=== PATIENT | female | born 1950 | race Caucasian/White ===

== ENCOUNTER 2019-09-20 14:26 | Inpatient (IN) ==
[2019-09-20 15:05] LABS: Basophils % 0.3 % (0.0-0.8); Eosinophils # 0.1 10*3/uL (0.0-0.87); Hematocrit 32.6 VOL% (35.7-47.0); Hemoglobin 11.3 GM/DL (12.0-16.0); Immature Granulocytes % 0.7 %; Immature Granulocytes Absolute 0.06 #; Lymphocytes # 1.8 10*3/uL (1.4-4.0); Lymphocytes % 20.6 % (21.3-54.2); Mean Corpuscular HGB Conc 34.7 GM/DL (32-36); Mean Corpuscular Volume 100.3 FL (87-102); Mean Platelet Volume 9.6 FL (9.6-12.0); Monocytes % 7.6 % (1.7-12.7); Neutrophils % 69.8 % (38.7-73.9); Platelet Count 219 T/CUMM (130-400); Red Blood Count 3.25 MC/CUMM (3.8-5.5); Red Cell Distribution Width 11.3 % (9.3-17.3); White Blood Count 8.9 T/CUMM (4-12)
[2019-09-20 15:14] LABS: PT Patient Result 10.6 SECS (9.6-12.2)
[2019-09-20 15:23] LABS: Albumin 3.1 G/DL (3.4-5.0); Bilirubin,Total 0.8 MG/DL (0.2-1.0); Calcium 9.1 MG/DL (8.5-10.1); Osmolality,Calculated 267.7 MOS/KG (273-304); Total Protein 8.1 G/DL (6.4-8.3)
[2019-09-20] MEDS ORDERED: SODIUM CHLORIDE 0.9% 1,000 ML IV STA (15:26)
[2019-09-20] MEDS ORDERED: GENTAMICIN INJ 80 MG in SODIUM CHLORIDE 0.9% 100 ML IV STA (15:33)
[2019-09-20] MEDS ORDERED: cefTRIAXone 1,000 MG in SODIUM CHLORIDE 0.9% 100 ML IV STA (15:33)
[2019-09-20] MEDS ORDERED: GENTAMICIN 80 MG/2 ML VIAL ONE (15:46)
[2019-09-20] MEDS: traMADol 50 MG TABLET PO SCH ×2 (17:43→23:05)
[2019-09-20] MEDS: GABAPENTIN 400 MG CAPSULE PO SCH ×2 (18:12→23:05)
[2019-09-20] MEDS ORDERED: DEXTROSE 50% 25 GM/50 ML SYRINGE IV PRN (18:18)
[2019-09-20] MEDS ORDERED: GLUCAGON 1 MG VIAL IM PRN (18:18)
[2019-09-20] MEDS ORDERED: GENTAMICIN INJ 360 MG in SODIUM CHLORIDE 0.9% 100 ML IV ONE (20:00)
[2019-09-20] MEDS: MAGNESIUM CHLORIDE 64 MG TABLET PO SCH (23:02)
[2019-09-20] MEDS: MONTELUKAST 10 MG TABLET PO SCH (23:03)
[2019-09-20] MEDS: ESTRADIOL 1 MG TABLET PO SCH (23:03)
[2019-09-20] MEDS: PRAMIPEXOLE 0.25 MG TABLET PO SCH (23:04)
[2019-09-20] MEDS: CALCIUM (CARBONATE)/VITAMIN D 600 MG-400 UNIT TABLET PO SCH (23:04)
[2019-09-20] MEDS: carvediloL 25 MG TABLET PO SCH (23:04)
[2019-09-20] MEDS: VITAMIN E 400 UNIT CAPSULE PO SCH (23:05)
[2019-09-20] MEDS: CLINDAMYCIN 300 MG CAPSULE PO SCH (23:05)
[2019-09-20] MEDS: LACTOBACILLUS ACIDOPHILUS/BULGARICUS CAPLET PO SCH (23:05)
[2019-09-20] MEDS: ASPIRIN EC 81 MG TABLET PO SCH (23:05)
[2019-09-20] MEDS: PANTOPRAZOLE 40 MG TABLET PO SCH (23:05)
[2019-09-20] MEDS: gemfibroziL 600 MG TABLET PO SCH (23:06)
[2019-09-20] MEDS: INSULIN LISPRO 100 UNIT/ML SUBCUT SCH (23:06)
[2019-09-20] MEDS: VALACYCLOVIR 1000 MG PO SCH (23:06)
[2019-09-21 06:28] LABS: Basophils % 0.3 % (0.0-0.8); Eosinophils # 0.2 10*3/uL (0.0-0.87); Eosinophils % 2.9 % (0.00-10.9); Hematocrit 26.6 VOL% (35.7-47.0); Hemoglobin 9.3 GM/DL (12.0-16.0); Immature Granulocytes % 0.5 %; Immature Granulocytes Absolute 0.03 #; Lymphocytes # 1.5 10*3/uL (1.4-4.0); Lymphocytes % 25.7 % (21.3-54.2); Mean Corpuscular Volume 98.9 FL (87-102); Mean Platelet Volume 9.6 FL (9.6-12.0); Monocytes % 8.4 % (1.7-12.7); Neutrophils % 62.2 % (38.7-73.9); Platelet Count 210 T/CUMM (130-400); Red Blood Count 2.69 MC/CUMM (3.8-5.5); Red Cell Distribution Width 11.6 % (9.3-17.3); White Blood Count 5.9 T/CUMM (4-12)
[2019-09-21 07:00] LABS: Alanine Aminotransferase < 9 U/L (13-56); Albumin 2.6 G/DL (3.4-5.0); Alkaline Phosphatase 62 U/L (45-117); Aspartate Amino Transferase 12 U/L (0-37); Blood Urea Nitrogen 13 MG/DL (7-18); Calcium 8.5 MG/DL (8.5-10.1); Estimated Glom Filtration Rate 83 ML/MIN; Glucose 117 MG/DL (74-106); Total Protein 6.8 G/DL (6.4-8.3)
[2019-09-21] MEDS ORDERED: FUROSEMIDE 40 MG TABLET PO SCH (09:00)
[2019-09-21] MEDS: CALCIUM (CARBONATE)/VITAMIN D 600 MG-400 UNIT TABLET PO SCH ×2 (10:04→20:57)
[2019-09-21] MEDS: carvediloL 25 MG TABLET PO SCH ×2 (10:04→16:33)
[2019-09-21] MEDS: INSULIN LISPRO 100 UNIT/ML SUBCUT SCH ×4 (10:04→20:57)
[2019-09-21] MEDS: ATORVASTATIN 20 MG TABLET PO SCH (10:05)
[2019-09-21] MEDS: FERROUS SULFATE 325 MG TABLET PO SCH (10:05)
[2019-09-21] MEDS: Prasterone (Dhea) [Dhea] 50 MG PO SCH (10:05)
[2019-09-21] MEDS: GABAPENTIN 400 MG CAPSULE PO SCH ×4 (10:05→20:56)
[2019-09-21] MEDS: gemfibroziL 600 MG TABLET PO SCH ×2 (10:05→20:57)
[2019-09-21] MEDS: POLYCARBOPHIL 625 MG TABLET PO SCH (10:05)
[2019-09-21] MEDS: CLINDAMYCIN 300 MG CAPSULE PO SCH ×3 (10:05→20:57)
[2019-09-21] MEDS: lisinopriL 2.5 MG TABLET PO SCH (10:05)
[2019-09-21] MEDS: PYRIDOXINE 100 MG TABLET PO SCH (10:06)
[2019-09-21] MEDS: traMADol 50 MG TABLET PO SCH ×4 (10:06→20:56)
[2019-09-21] MEDS: CHOLECALCIFEROL 1,000 UNIT TABLET PO SCH (10:06)
[2019-09-21] MEDS: ASCORBIC ACID 500 MG TABLET PO SCH (10:06)
[2019-09-21] MEDS: PANTOPRAZOLE 40 MG TABLET PO SCH ×2 (10:06→20:57)
[2019-09-21] MEDS: MAGNESIUM CHLORIDE 64 MG TABLET PO SCH ×3 (10:06→20:56)
[2019-09-21] MEDS ORDERED: CYANOCOBALAMIN 500 MCG TABLET PO SCH (12:00)
[2019-09-21] MEDS ORDERED: FAMOTIDINE 20 MG/2 ML VIAL IV ONE (14:21)
[2019-09-21] MEDS ORDERED: LIDOCAINE 1% 20 ML VIAL ONE (14:29)
[2019-09-21] MEDS ORDERED: cefTRIAXone 1,000 MG in SYRINGE 1 EACH IV SCH (15:00)
[2019-09-21] MEDS ORDERED: propofoL 200 MG/20 ML VIAL IV ONE (15:09)
[2019-09-21] MEDS ORDERED: LACTATED RINGERS 1,000 ML IV ONE (15:10)
[2019-09-21] MEDS ORDERED: LIDOCAINE 2% 5 ML VIAL ONE (15:10)
[2019-09-21] MEDS ORDERED: KETOROLAC 30 MG/1 ML VIAL ONE (15:10)
[2019-09-21] MEDS ORDERED: SODIUM CHLORIDE 0.9% 100 ML IV ONE (15:10)
[2019-09-21] MEDS ORDERED: fentaNYL 100 MCG/2 ML VIAL ONE (15:10)
[2019-09-21] MEDS ORDERED: MIDAZOLAM 2 MG/2 ML VIAL ONE (15:10)
[2019-09-21] MEDS: VALACYCLOVIR 1000 MG PO SCH (20:55)
[2019-09-21] MEDS: ESTRADIOL 1 MG TABLET PO SCH (20:56)
[2019-09-21] MEDS: PRAMIPEXOLE 0.25 MG TABLET PO SCH (20:56)
[2019-09-21] MEDS: VITAMIN E 400 UNIT CAPSULE PO SCH (20:57)
[2019-09-21] MEDS: ASPIRIN EC 81 MG TABLET PO SCH (20:57)
[2019-09-21] MEDS: LACTOBACILLUS ACIDOPHILUS/BULGARICUS CAPLET PO SCH (20:57)
[2019-09-21] MEDS: MONTELUKAST 10 MG TABLET PO SCH (20:57)
[2019-09-22 05:04] LABS: Basophils % 0.5 % (0.0-0.8); Eosinophils # 0.3 10*3/uL (0.0-0.87); Eosinophils % 6.3 % (0.00-10.9); Hemoglobin 9.8 GM/DL (12.0-16.0); Immature Granulocytes % 0.2 %; Immature Granulocytes Absolute 0.01 #; Lymphocytes # 1.8 10*3/uL (1.4-4.0); Lymphocytes % 42.9 % (21.3-54.2); Mean Corpuscular Volume 99.6 FL (87-102); Mean Platelet Volume 9.8 FL (9.6-12.0); Monocytes % 8.2 % (1.7-12.7); Neutrophils % 41.9 % (38.7-73.9); Platelet Count 213 T/CUMM (130-400); Red Blood Count 2.81 MC/CUMM (3.8-5.5); Red Cell Distribution Width 11.4 % (9.3-17.3); White Blood Count 4.2 T/CUMM (4-12)
[2019-09-22] MEDS ORDERED: GENTAMICIN INJ 440 MG in SODIUM CHLORIDE 0.9% 100 ML IV SCH (08:00)
[2019-09-22 08:10] VITALS: BP 113/62
[2019-09-22] MEDS: ASCORBIC ACID 500 MG TABLET PO SCH (09:41)
[2019-09-22] MEDS: PANTOPRAZOLE 40 MG TABLET PO SCH (09:42)
[2019-09-22] MEDS: GABAPENTIN 400 MG CAPSULE PO SCH (09:42)
[2019-09-22] MEDS: ATORVASTATIN 20 MG TABLET PO SCH (09:42)
[2019-09-22] MEDS: POLYCARBOPHIL 625 MG TABLET PO SCH (09:43)
[2019-09-22] MEDS: CLINDAMYCIN 300 MG CAPSULE PO SCH (09:43)
[2019-09-22] MEDS: CHOLECALCIFEROL 1,000 UNIT TABLET PO SCH (09:43)
[2019-09-22] MEDS: traMADol 50 MG TABLET PO SCH (09:43)
[2019-09-22] MEDS: FERROUS SULFATE 325 MG TABLET PO SCH (09:43)
[2019-09-22] MEDS: MAGNESIUM CHLORIDE 64 MG TABLET PO SCH (09:43)
[2019-09-22] MEDS: carvediloL 25 MG TABLET PO SCH (09:43)
[2019-09-22] MEDS: Prasterone (Dhea) [Dhea] 50 MG PO SCH (09:44)
[2019-09-22] MEDS: PYRIDOXINE 100 MG TABLET PO SCH (09:44)
[2019-09-22] MEDS: gemfibroziL 600 MG TABLET PO SCH (09:44)
[2019-09-22] MEDS: lisinopriL 2.5 MG TABLET PO SCH (09:45)
[2019-09-22] MEDS: CALCIUM (CARBONATE)/VITAMIN D 600 MG-400 UNIT TABLET PO SCH (10:06)
[2019-09-22] MEDS: INSULIN LISPRO 100 UNIT/ML SUBCUT SCH ×2 (10:16→12:20)
== END 2019-09-22 12:22 | disposition home health service (06) | DRG 623 ==
LOC: N.ED 14:26 → N.EDINP 16:37 → N.5E 17:28
PROVIDERS: ADMIT Internal Medicine; ATTEND Internal Medicine

== ENCOUNTER 2020-06-26 17:49 | Inpatient (IN) ==
[2020-06-26] MEDS ORDERED: SODIUM CHLORIDE 0.9% 1,000 ML IV STA ×3 (18:16→20:45)
[2020-06-26] MEDS ORDERED: ACETAMINOPHEN 500 MG TABLET PO STA (18:52)
[2020-06-26 19:35] LABS: Basophils % 0.2 % (0.0-0.8); Eosinophils # 0.1 10*3/uL (0.0-0.87); Eosinophils % 1.1 % (0.00-10.9); Hematocrit 35.6 VOL% (35.7-47.0); Hemoglobin 12.6 GM/DL (12.0-16.0); Immature Granulocytes % 0.4 %; Immature Granulocytes Absolute 0.04 #; Lymphocytes # 0.7 10*3/uL (1.4-4.0); Lymphocytes % 6.1 % (21.3-54.2); Mean Corpuscular HGB Conc 35.4 GM/DL (32-36); Mean Corpuscular Volume 97.8 FL (87-102); Mean Platelet Volume 10.1 FL (9.6-12.0); Monocytes % 4.9 % (1.7-12.7); Neutrophils % 87.3 % (38.7-73.9); Platelet Count 164 T/CUMM (130-400); Red Blood Count 3.64 MC/CUMM (3.8-5.5); Red Cell Distribution Width 12.7 % (9.3-17.3); White Blood Count 10.7 T/CUMM (4-12)
[2020-06-26 19:49] LABS: PT Patient Result 10.6 SECS (9.8-11.9)
[2020-06-26 20:02] LABS: Alanine Aminotransferase 13 U/L (13-56); Albumin 3.2 G/DL (3.4-5.0); Alkaline Phosphatase 86 U/L (45-117); Aspartate Amino Transferase 20 U/L (0-37); Blood Urea Nitrogen 22 MG/DL (7-18); Calcium 9.1 MG/DL (8.5-10.1); Estimated Glom Filtration Rate 45 ML/MIN; Ferritin 120.4 ng/ml (8-252); Glucose 175 MG/DL (74-106); Osmolality,Calculated 268.7 MOS/KG (273-304); Total Protein 7.4 G/DL (6.4-8.3)
[2020-06-26] MEDS ORDERED: KETOROLAC 30 MG/1 ML VIAL IV STA (20:05)
[2020-06-26 20:06] LABS: Bilirubin,Urine Negative (Negative); Blood, Urine Negative (Negative); Glucose,Urine (UA) Negative (Negative); Hyaline Casts,Urine 1 /LPF (0-3); Ketones,Urine Negative (Negative); Nitrite,Urine Negative (Negative); Protein,Urine Negative; Squamous Epithelial Cell,Urine Occasional /HPF (0-10); Urine Appearance Slightly Hazy (Clear); Urine Color Yellow (Yellow); Urine Specific Gravity 1.012 (1.001-1.035); Urine Urobilinogen < 2.0 EU/DL (0.2-1.0); WBC,Urine 1 /HPF (0-6)
[2020-06-26] MEDS ORDERED: PIPERACILLIN/TAZOBACTAM 3,375 MG in SODIUM CHLORIDE 0.9% 100 ML IV STA (20:26)
[2020-06-27] MEDS ORDERED: NOREPINEPHRINE 8 MG in SODIUM CHLORIDE 0.9% 242 ML IV PRN (00:23)
[2020-06-27] MEDS ORDERED: NOREPINEPHRINE 4 MG/4 ML VIAL IV ONE (00:26)
[2020-06-27] MEDS ORDERED: VANCOMYCIN INJ 1,000 MG in SODIUM CHLORIDE 0.9% 250 ML IV SCH (01:00)
[2020-06-27] MEDS ORDERED: ONDANSETRON 4 MG/2 ML VIAL IV PRN (01:10)
[2020-06-27] MEDS ORDERED: ALBUTEROL 2.5 MG/3 ML NEB RESP TX PRN (01:10)
[2020-06-27] MEDS ORDERED: GABAPENTIN 600 MG TABLET PO SCH (03:00)
[2020-06-27] MEDS ORDERED: ACETAMINOPHEN 325 MG TABLET ONE (03:03)
[2020-06-27] MEDS: ACETAMINOPHEN 325 MG TABLET PO PRN ×2 (03:14→11:30)
[2020-06-27] MEDS: AZTREONAM 1,000 MG in SYRINGE 1 EACH IV SCH ×2 (03:46→14:57)
[2020-06-27] MEDS: GENTAMICIN INJ 360 MG in SODIUM CHLORIDE 0.9% 100 ML IV SCH (03:52)
[2020-06-27] MEDS: LACTATED RINGERS 1,000 ML IV SCH ×4 (04:13→21:11)
[2020-06-27] MEDS: PANTOPRAZOLE 40 MG VIAL IV SCH ×2 (04:16→09:40)
[2020-06-27 04:23] LABS: Basophils % 0.2 % (0.0-0.8); Eosinophils % 0.2 % (0.00-10.9); Hematocrit 29.8 VOL% (35.7-47.0); Hemoglobin 10.4 GM/DL (12.0-16.0); Immature Granulocytes % 0.8 %; Immature Granulocytes Absolute 0.07 #; Lymphocytes # 0.6 10*3/uL (1.4-4.0); Lymphocytes % 6.6 % (21.3-54.2); Mean Corpuscular HGB Conc 34.9 GM/DL (32-36); Mean Corpuscular Volume 99.7 FL (87-102); Mean Platelet Volume 9.9 FL (9.6-12.0); Monocytes % 4.1 % (1.7-12.7); Neutrophils % 88.1 % (38.7-73.9); Platelet Count 141 T/CUMM (130-400); Red Blood Count 2.99 MC/CUMM (3.8-5.5); Red Cell Distribution Width 13.1 % (9.3-17.3); White Blood Count 8.7 T/CUMM (4-12)
[2020-06-27] MEDS ORDERED: KETOROLAC 30 MG/1 ML VIAL IV ONE (04:28)
[2020-06-27 04:54] LABS: Calcium 7.6 MG/DL (8.5-10.1); Osmolality,Calculated 279.8 MOS/KG (273-304); Thyroid Stimulating Hormone 0.303 uIU/ml (0.358-3.74)
[2020-06-27] MEDS ORDERED: MAGNESIUM SULF RIDER 4 GM in PREMIX 1 EACH IV ONE (06:30)
[2020-06-27 06:43] LABS: Bilirubin,Urine Negative (Negative); Blood, Urine Negative (Negative); Glucose,Urine (UA) Negative (Negative); Ketones,Urine Negative (Negative); Nitrite,Urine Negative (Negative); Protein,Urine Negative; RBC,Urine <1 /HPF (0-4); Squamous Epithelial Cell,Urine Occasional /HPF (0-10); Urine Appearance CLEAR (Clear); Urine Color Yellow (Yellow); Urine Specific Gravity 1.027 (1.001-1.035); Urine Urobilinogen < 2.0 EU/DL (0.2-1.0); WBC,Urine <1 /HPF (0-6)
[2020-06-27] MEDS ORDERED: MAGNESIUM SULF RIDER 50 ML IV ONE (06:58)
[2020-06-27] MEDS ORDERED: COSYNTROPIN 0.25 MG VIAL IV ONE (08:14)
[2020-06-27] MEDS ORDERED: MAGNESIUM SULF RIDER 4 GM in PREMIX 1 EACH IV PRN (08:24)
[2020-06-27] MEDS ORDERED: traMADol 50 MG TABLET PO SCH (09:00)
[2020-06-27] MEDS: RIFAMPIN INJ 600 MG in SODIUM CHLORIDE 0.9% 100 ML IV SCH (09:39)
[2020-06-27] MEDS: MAGNESIUM SULF RIDER 2 GM in PREMIX 1 EACH IV PRN (09:39)
[2020-06-27] MEDS: FERROUS GLUCONATE 324 MG TABLET PO SCH (09:40)
[2020-06-27] MEDS: ENOXAPARIN 40 MG/0.4 ML SYRINGE SUBCUT SCH (09:40)
[2020-06-27] MEDS: ASCORBIC ACID 500 MG TABLET PO SCH (09:40)
[2020-06-27] MEDS: ZINC GLUCONATE 50 MG TABLET PO SCH (09:41)
[2020-06-27] MEDS: POLYCARBOPHIL 625 MG TABLET PO SCH (09:41)
[2020-06-27] MEDS: ATORVASTATIN 20 MG TABLET PO SCH (09:41)
[2020-06-27] MEDS: LACTOBACILLUS ACIDOPHILUS/BULGARICUS CHEW TABLET PO SCH ×2 (09:52→20:50)
[2020-06-27] MEDS ORDERED: POTASSIUM CHLORIDE RIDER 10 MEQ in PREMIX 1 EACH IV PRN (11:36)
[2020-06-27] MEDS ORDERED: POTASSIUM CHLORIDE RIDER 20 MEQ in PREMIX 1 EACH IV PRN (11:36)
[2020-06-27] MEDS: HYDROCORTISONE 100 MG VIAL IV SCH ×2 (12:49→20:52)
[2020-06-27] MEDS ORDERED: DEXTROSE 50% 25 GM/50 ML VIAL IV PRN (14:19)
[2020-06-27] MEDS ORDERED: GLUCAGON 1 MG VIAL IM PRN (14:19)
[2020-06-27] MEDS: INSULIN LISPRO 100 UNIT/ML SUBCUT SCH ×2 (17:07→20:52)
[2020-06-27] MEDS: valACYclovir 500 MG TABLET PO SCH (20:51)
[2020-06-27] MEDS: ASPIRIN EC 81 MG TABLET PO SCH (20:51)
[2020-06-27] MEDS: MONTELUKAST 10 MG TABLET PO SCH (20:51)
[2020-06-27] MEDS ORDERED: ESTRADIOL 1 MG TABLET PO SCH (21:00)
[2020-06-27] MEDS ORDERED: PRAMIPEXOLE 0.25 MG TABLET PO SCH (21:00)
[2020-06-28] MEDS: AZTREONAM 1,000 MG in SYRINGE 1 EACH IV SCH ×2 (03:32→15:24)
[2020-06-28] MEDS: HYDROCORTISONE 100 MG VIAL IV SCH ×2 (04:40→15:24)
[2020-06-28] MEDS: LACTATED RINGERS 1,000 ML IV SCH ×2 (04:41→15:28)
[2020-06-28 04:58] LABS: Hematocrit 31.8 VOL% (35.7-47.0); Hemoglobin 11.3 GM/DL (12.0-16.0); Immature Granulocytes % 0.3 %; Immature Granulocytes Absolute 0.01 #; Lymphocytes # 0.4 10*3/uL (1.4-4.0); Lymphocytes % 13.9 % (21.3-54.2); Mean Corpuscular HGB Conc 35.5 GM/DL (32-36); Mean Corpuscular Volume 98.8 FL (87-102); Mean Platelet Volume 9.4 FL (9.6-12.0); Monocytes % 2.8 % (1.7-12.7); Red Blood Count 3.22 MC/CUMM (3.8-5.5); Red Cell Distribution Width 13.2 % (9.3-17.3); White Blood Count 2.9 T/CUMM (4-12)
[2020-06-28 04:59] LABS: Platelet Count 105 T/CUMM (130-400)
[2020-06-28 05:12] LABS: Calcium 7.9 MG/DL (8.5-10.1)
[2020-06-28] MEDS: INSULIN LISPRO 100 UNIT/ML SUBCUT SCH ×4 (08:09→21:02)
[2020-06-28] MEDS: ACETAMINOPHEN 325 MG TABLET PO PRN (08:35)
[2020-06-28] MEDS: ATORVASTATIN 20 MG TABLET PO SCH (08:36)
[2020-06-28] MEDS: ASCORBIC ACID 500 MG TABLET PO SCH (08:37)
[2020-06-28] MEDS: POLYCARBOPHIL 625 MG TABLET PO SCH (08:37)
[2020-06-28] MEDS: FERROUS GLUCONATE 324 MG TABLET PO SCH (08:37)
[2020-06-28] MEDS: RIFAMPIN INJ 600 MG in SODIUM CHLORIDE 0.9% 100 ML IV SCH (08:38)
[2020-06-28] MEDS: ENOXAPARIN 40 MG/0.4 ML SYRINGE SUBCUT SCH (08:38)
[2020-06-28] MEDS: ZINC GLUCONATE 50 MG TABLET PO SCH (08:38)
[2020-06-28] MEDS: PANTOPRAZOLE 40 MG VIAL IV SCH (08:38)
[2020-06-28] MEDS: LACTOBACILLUS ACIDOPHILUS/BULGARICUS CHEW TABLET PO SCH ×2 (10:16→21:00)
[2020-06-28] MEDS ORDERED: GABAPENTIN 400 MG CAPSULE PO SCH (13:00)
[2020-06-28] MEDS: GENTAMICIN INJ 360 MG in SODIUM CHLORIDE 0.9% 100 ML IV SCH (15:23)
[2020-06-28] MEDS: GABAPENTIN 400 MG CAPSULE PO SCH (18:23)
[2020-06-28] MEDS: valACYclovir 500 MG TABLET PO SCH (20:59)
[2020-06-28] MEDS: MONTELUKAST 10 MG TABLET PO SCH (21:00)
[2020-06-28] MEDS: ASPIRIN EC 81 MG TABLET PO SCH (21:00)
[2020-06-28] MEDS: traMADol 50 MG TABLET PO PRN (23:37)
[2020-06-29] MEDS: GABAPENTIN 400 MG CAPSULE PO SCH ×5 (00:37→23:52)
[2020-06-29] MEDS: LACTATED RINGERS 1,000 ML IV SCH ×2 (00:38→09:48)
[2020-06-29] MEDS: AZTREONAM 1,000 MG in SYRINGE 1 EACH IV SCH (02:46)
[2020-06-29] MEDS: HYDROCORTISONE 100 MG VIAL IV SCH ×2 (04:12→21:20)
[2020-06-29 08:20] LABS: Basophils % 0.1 % (0.0-0.8); Eosinophils % 0.2 % (0.00-10.9); Hematocrit 27.1 VOL% (35.7-47.0); Immature Granulocytes % 0.7 %; Immature Granulocytes Absolute 0.06 #; Lymphocytes % 11.6 % (21.3-54.2); Mean Corpuscular HGB Conc 35.1 GM/DL (32-36); Mean Platelet Volume 10.2 FL (9.6-12.0); Neutrophils % 83.4 % (38.7-73.9); Red Blood Count 2.71 MC/CUMM (3.8-5.5)
[2020-06-29 08:24] LABS: Hemoglobin 9.5 GM/DL (12.0-16.0); Platelet Count 143 T/CUMM (130-400); White Blood Count 8.2 T/CUMM (4-12)
[2020-06-29] MEDS: INSULIN LISPRO 100 UNIT/ML SUBCUT SCH ×4 (08:35→21:21)
[2020-06-29 08:45] LABS: Albumin 2.1 G/DL (3.4-5.0); Bilirubin,Total 0.6 MG/DL (0.2-1.0); Calcium 8.7 MG/DL (8.5-10.1); Osmolality,Calculated 289.8 MOS/KG (273-304); Total Protein 5.5 G/DL (6.4-8.3)
[2020-06-29] MEDS ORDERED: PANTOPRAZOLE 40 MG TABLET PO SCH (09:00)
[2020-06-29] MEDS ORDERED: AZTREONAM 1,000 MG in SYRINGE 1 EACH IV SCH (09:00)
[2020-06-29] MEDS: cefTRIAXone 1,000 MG in SYRINGE 1 EACH IV SCH (09:49)
[2020-06-29] MEDS: POLYCARBOPHIL 625 MG TABLET PO SCH (09:50)
[2020-06-29] MEDS: ATORVASTATIN 20 MG TABLET PO SCH (09:50)
[2020-06-29] MEDS: FONDAPARINUX 2.5 MG/0.5 ML SYRINGE SUBCUT SCH (09:50)
[2020-06-29] MEDS: LACTOBACILLUS ACIDOPHILUS/BULGARICUS CHEW TABLET PO SCH ×2 (09:50→21:23)
[2020-06-29] MEDS: ZINC GLUCONATE 50 MG TABLET PO SCH (09:50)
[2020-06-29] MEDS: ASCORBIC ACID 500 MG TABLET PO SCH (09:50)
[2020-06-29] MEDS: FERROUS GLUCONATE 324 MG TABLET PO SCH (09:50)
[2020-06-29] MEDS: AZITHROMYCIN 250 MG TABLET PO SCH (09:50)
[2020-06-29] MEDS: POLYETHYLENE GLYCOL POWDER 17 GM PACK PO SCH ×2 (09:51→21:21)
[2020-06-29] MEDS: DOCUSATE SODIUM 100 MG CAPSULE PO SCH ×2 (09:51→21:21)
[2020-06-29] MEDS: traMADol 50 MG TABLET PO PRN (14:45)
[2020-06-29] MEDS: FUROSEMIDE 40 MG/4 ML VIAL IV SCH (14:49)
[2020-06-29] MEDS: PANTOPRAZOLE 40 MG TABLET PO SCH (17:03)
[2020-06-29] MEDS: MONTELUKAST 10 MG TABLET PO SCH (21:19)
[2020-06-29] MEDS: ASPIRIN EC 81 MG TABLET PO SCH (21:19)
[2020-06-29] MEDS: valACYclovir 500 MG TABLET PO SCH (21:19)
[2020-06-30] MEDS: traMADol 50 MG TABLET PO PRN (04:21)
[2020-06-30] MEDS: GABAPENTIN 400 MG CAPSULE PO SCH ×3 (06:22→17:45)
[2020-06-30] MEDS: INSULIN LISPRO 100 UNIT/ML SUBCUT SCH ×4 (07:17→20:51)
[2020-06-30 07:30] LABS: Basophils % 0.2 % (0.0-0.8); Eosinophils % 0.2 % (0.00-10.9); Hematocrit 26.8 VOL% (35.7-47.0); Hemoglobin 9.4 GM/DL (12.0-16.0); Immature Granulocytes % 0.4 %; Immature Granulocytes Absolute 0.02 #; Lymphocytes # 1.7 10*3/uL (1.4-4.0); Mean Corpuscular HGB Conc 35.1 GM/DL (32-36); Mean Corpuscular Volume 100.4 FL (87-102); Mean Platelet Volume 10.2 FL (9.6-12.0); Monocytes % 7.3 % (1.7-12.7); Neutrophils % 54.9 % (38.7-73.9); Platelet Count 149 T/CUMM (130-400); Red Blood Count 2.67 MC/CUMM (3.8-5.5); Red Cell Distribution Width 13.8 % (9.3-17.3); White Blood Count 4.7 T/CUMM (4-12)
[2020-06-30 07:49] LABS: Calcium 8.4 MG/DL (8.5-10.1); Osmolality,Calculated 287.8 MOS/KG (273-304)
[2020-06-30 07:59] LABS: Free T4 (Free Thyroxine) 1.18 NG/DL (0.76-1.46)
[2020-06-30] MEDS: AZITHROMYCIN 250 MG TABLET PO SCH (08:25)
[2020-06-30] MEDS: PANTOPRAZOLE 40 MG TABLET PO SCH ×2 (08:25→16:00)
[2020-06-30] MEDS: LACTOBACILLUS ACIDOPHILUS/BULGARICUS CHEW TABLET PO SCH ×2 (08:26→20:41)
[2020-06-30] MEDS: FONDAPARINUX 2.5 MG/0.5 ML SYRINGE SUBCUT SCH (08:26)
[2020-06-30] MEDS: DOCUSATE SODIUM 100 MG CAPSULE PO SCH ×2 (08:26→20:42)
[2020-06-30] MEDS: POLYCARBOPHIL 625 MG TABLET PO SCH (08:26)
[2020-06-30] MEDS: ASCORBIC ACID 500 MG TABLET PO SCH (08:26)
[2020-06-30] MEDS: ZINC GLUCONATE 50 MG TABLET PO SCH (08:26)
[2020-06-30] MEDS: ATORVASTATIN 20 MG TABLET PO SCH (08:26)
[2020-06-30] MEDS: FUROSEMIDE 40 MG/4 ML VIAL IV SCH ×2 (08:27→16:00)
[2020-06-30] MEDS: cefTRIAXone 1,000 MG in SYRINGE 1 EACH IV SCH (08:27)
[2020-06-30] MEDS: FERROUS GLUCONATE 324 MG TABLET PO SCH (08:28)
[2020-06-30] MEDS: HYDROCORTISONE 100 MG VIAL IV SCH ×2 (08:28→20:57)
[2020-06-30] MEDS: POLYETHYLENE GLYCOL POWDER 17 GM PACK PO SCH ×2 (08:31→20:43)
[2020-06-30] MEDS: ASPIRIN EC 81 MG TABLET PO SCH (20:42)
[2020-06-30] MEDS: valACYclovir 500 MG TABLET PO SCH (20:42)
[2020-06-30] MEDS: MONTELUKAST 10 MG TABLET PO SCH (20:43)
[2020-07-01] MEDS: GABAPENTIN 400 MG CAPSULE PO SCH ×4 (01:15→18:13)
[2020-07-01 05:42] LABS: Basophils % 0.3 % (0.0-0.8); Eosinophils % 0.5 % (0.00-10.9); Hematocrit 25.9 VOL% (35.7-47.0); Hemoglobin 9.2 GM/DL (12.0-16.0); Immature Granulocytes % 0.8 %; Immature Granulocytes Absolute 0.03 #; Lymphocytes # 1.8 10*3/uL (1.4-4.0); Lymphocytes % 47.1 % (21.3-54.2); Mean Corpuscular HGB Conc 35.5 GM/DL (32-36); Mean Corpuscular Volume 98.5 FL (87-102); Mean Platelet Volume 10.1 FL (9.6-12.0); Monocytes % 7.9 % (1.7-12.7); Neutrophils % 43.4 % (38.7-73.9); Platelet Count 147 T/CUMM (130-400); Red Blood Count 2.63 MC/CUMM (3.8-5.5); White Blood Count 3.8 T/CUMM (4-12)
[2020-07-01 06:04] LABS: % Iron Saturation 28.3 % (18-50); Ferritin 155.5 ng/ml (8-252)
[2020-07-01 06:13] LABS: Folate 12.4 NG/ML (5.4-24.0); Vitamin B12 871 PG/ML (211-911)
[2020-07-01] MEDS ORDERED: POTASSIUM CHLORIDE 20 MEQ TABLET PO ONE (06:44)
[2020-07-01] MEDS: INSULIN LISPRO 100 UNIT/ML SUBCUT SCH ×4 (07:58→21:07)
[2020-07-01 08:07] LABS: Sedimentation Rate-Westergren 96 MM/HR (0-30)
[2020-07-01] MEDS: PANTOPRAZOLE 40 MG TABLET PO SCH ×2 (08:33→16:31)
[2020-07-01] MEDS: FONDAPARINUX 2.5 MG/0.5 ML SYRINGE SUBCUT SCH (08:34)
[2020-07-01] MEDS: DOCUSATE SODIUM 100 MG CAPSULE PO SCH ×2 (08:34→21:06)
[2020-07-01] MEDS: POLYCARBOPHIL 625 MG TABLET PO SCH (08:34)
[2020-07-01] MEDS: FUROSEMIDE 40 MG/4 ML VIAL IV SCH ×2 (08:34→16:30)
[2020-07-01] MEDS: FERROUS GLUCONATE 324 MG TABLET PO SCH (08:34)
[2020-07-01] MEDS: LACTOBACILLUS ACIDOPHILUS/BULGARICUS CHEW TABLET PO SCH ×2 (08:34→21:07)
[2020-07-01] MEDS: POLYETHYLENE GLYCOL POWDER 17 GM PACK PO SCH ×2 (08:35→21:07)
[2020-07-01] MEDS: HYDROCORTISONE 100 MG VIAL IV SCH ×2 (08:35→21:16)
[2020-07-01] MEDS: ATORVASTATIN 20 MG TABLET PO SCH (08:35)
[2020-07-01] MEDS: cefTRIAXone 1,000 MG in SYRINGE 1 EACH IV SCH (08:35)
[2020-07-01] MEDS: AZITHROMYCIN 250 MG TABLET PO SCH (08:36)
[2020-07-01] MEDS: ZINC GLUCONATE 50 MG TABLET PO SCH (08:36)
[2020-07-01] MEDS: ASCORBIC ACID 500 MG TABLET PO SCH (08:36)
[2020-07-01] MEDS ORDERED: diphenhydrAMINE 2% CREAM 28 GM TUBE TOP PRN (13:42)
[2020-07-01] MEDS ORDERED: diphenhydrAMINE CAP 25 MG CAPSULE PO PRN (13:42)
[2020-07-01] MEDS: traMADol 50 MG TABLET PO PRN (16:37)
[2020-07-01] MEDS: MONTELUKAST 10 MG TABLET PO SCH (21:06)
[2020-07-01] MEDS: valACYclovir 500 MG TABLET PO SCH (21:06)
[2020-07-01] MEDS: ASPIRIN EC 81 MG TABLET PO SCH (21:07)
[2020-07-02] MEDS: GABAPENTIN 400 MG CAPSULE PO SCH ×4 (00:15→17:06)
[2020-07-02 05:40] LABS: Basophils % 0.5 % (0.0-0.8); Eosinophils % 0.9 % (0.00-10.9); Hemoglobin 9.3 GM/DL (12.0-16.0); Immature Granulocytes % 0.9 %; Immature Granulocytes Absolute 0.04 #; Lymphocytes # 1.9 10*3/uL (1.4-4.0); Lymphocytes % 43.3 % (21.3-54.2); Mean Corpuscular HGB Conc 35.8 GM/DL (32-36); Mean Corpuscular Volume 98.9 FL (87-102); Mean Platelet Volume 9.8 FL (9.6-12.0); Neutrophils % 47.4 % (38.7-73.9); Platelet Count 155 T/CUMM (130-400); Red Blood Count 2.63 MC/CUMM (3.8-5.5); White Blood Count 4.4 T/CUMM (4-12)
[2020-07-02 06:33] LABS: Calcium 7.9 MG/DL (8.5-10.1); Osmolality,Calculated 281.3 MOS/KG (273-304)
[2020-07-02 10:30] LABS: Hemoglobin A1 (Alkaline) 98.1 % (96.5-98.5); Hemoglobin A2 (Alkaline) 1.9 % (1.5-3.5)
[2020-07-02] MEDS: POLYCARBOPHIL 625 MG TABLET PO SCH (10:37)
[2020-07-02] MEDS: DOCUSATE SODIUM 100 MG CAPSULE PO SCH ×2 (10:37→20:31)
[2020-07-02] MEDS: AZITHROMYCIN 250 MG TABLET PO SCH (10:37)
[2020-07-02] MEDS: lisinopriL 10 MG TABLET PO SCH (10:37)
[2020-07-02] MEDS: ASCORBIC ACID 500 MG TABLET PO SCH (10:37)
[2020-07-02] MEDS: METOPROLOL SUCCINATE XL 25 MG TABLET PO SCH (10:37)
[2020-07-02] MEDS: ZINC GLUCONATE 50 MG TABLET PO SCH (10:38)
[2020-07-02] MEDS: ATORVASTATIN 20 MG TABLET PO SCH (10:38)
[2020-07-02] MEDS: FERROUS GLUCONATE 324 MG TABLET PO SCH (10:38)
[2020-07-02] MEDS: FONDAPARINUX 2.5 MG/0.5 ML SYRINGE SUBCUT SCH (10:38)
[2020-07-02] MEDS: FUROSEMIDE 40 MG/4 ML VIAL IV SCH (10:38)
[2020-07-02] MEDS: PANTOPRAZOLE 40 MG TABLET PO SCH ×2 (10:38→17:06)
[2020-07-02] MEDS: cefTRIAXone 1,000 MG in SYRINGE 1 EACH IV SCH (10:41)
[2020-07-02] MEDS: POLYETHYLENE GLYCOL POWDER 17 GM PACK PO SCH ×2 (10:48→20:31)
[2020-07-02] MEDS: INSULIN LISPRO 100 UNIT/ML SUBCUT SCH ×4 (10:54→20:49)
[2020-07-02] MEDS: LACTOBACILLUS ACIDOPHILUS/BULGARICUS CHEW TABLET PO SCH ×2 (10:55→20:32)
[2020-07-02] MEDS: HYDROCORTISONE 100 MG VIAL IV SCH (11:12)
[2020-07-02] MEDS: FUROSEMIDE 40 MG TABLET PO SCH (17:06)
[2020-07-02] MEDS: ASPIRIN EC 81 MG TABLET PO SCH (20:30)
[2020-07-02] MEDS: MONTELUKAST 10 MG TABLET PO SCH (20:31)
[2020-07-02] MEDS: valACYclovir 500 MG TABLET PO SCH (20:31)
[2020-07-03] MEDS: GABAPENTIN 400 MG CAPSULE PO SCH ×4 (00:30→18:09)
[2020-07-03] MEDS: ACETAMINOPHEN 325 MG TABLET PO PRN (00:32)
[2020-07-03 06:27] LABS: Basophils % 0.2 % (0.0-0.8); Eosinophils # 0.3 10*3/uL (0.0-0.87); Eosinophils % 6.4 % (0.00-10.9); Hemoglobin 9.2 GM/DL (12.0-16.0); Immature Granulocytes % 0.7 %; Immature Granulocytes Absolute 0.03 #; Lymphocytes # 2.2 10*3/uL (1.4-4.0); Lymphocytes % 49.5 % (21.3-54.2); Mean Corpuscular HGB Conc 35.4 GM/DL (32-36); Mean Corpuscular Volume 101.2 FL (87-102); Mean Platelet Volume 9.7 FL (9.6-12.0); Neutrophils % 36.2 % (38.7-73.9); Platelet Count 168 T/CUMM (130-400); Red Blood Count 2.57 MC/CUMM (3.8-5.5); Red Cell Distribution Width 13.1 % (9.3-17.3); White Blood Count 4.4 T/CUMM (4-12)
[2020-07-03 06:46] LABS: Calcium 7.5 MG/DL (8.5-10.1); Osmolality,Calculated 286.8 MOS/KG (273-304)
[2020-07-03 06:52] LABS: Atypical Lymphocytes Few; Eosinophils 7 % (0-10); Hypochromasia 1+; Lymphocytes 47 % (20-55); Platelet Estimate Adequate; Segmented Neutrophils 41 % (50-85); Total Cells Counted 100
[2020-07-03] MEDS: INSULIN LISPRO 100 UNIT/ML SUBCUT SCH ×4 (07:52→21:11)
[2020-07-03] MEDS: POTASSIUM CHLORIDE 20 MEQ TABLET PO PRN ×4 (08:05→14:29)
[2020-07-03] MEDS: FONDAPARINUX 2.5 MG/0.5 ML SYRINGE SUBCUT SCH (08:06)
[2020-07-03] MEDS: cefTRIAXone 1,000 MG in SYRINGE 1 EACH IV SCH (08:06)
[2020-07-03] MEDS: ZINC GLUCONATE 50 MG TABLET PO SCH (08:08)
[2020-07-03] MEDS: LACTOBACILLUS ACIDOPHILUS/BULGARICUS CHEW TABLET PO SCH ×2 (08:08→21:13)
[2020-07-03] MEDS: ATORVASTATIN 20 MG TABLET PO SCH (08:08)
[2020-07-03] MEDS: FERROUS GLUCONATE 324 MG TABLET PO SCH (08:08)
[2020-07-03] MEDS: AZITHROMYCIN 250 MG TABLET PO SCH (08:08)
[2020-07-03] MEDS: ASCORBIC ACID 500 MG TABLET PO SCH (08:08)
[2020-07-03] MEDS: POLYCARBOPHIL 625 MG TABLET PO SCH (08:08)
[2020-07-03] MEDS: FUROSEMIDE 40 MG TABLET PO SCH ×2 (08:08→16:25)
[2020-07-03] MEDS: METOPROLOL SUCCINATE XL 25 MG TABLET PO SCH (08:08)
[2020-07-03] MEDS: PANTOPRAZOLE 40 MG TABLET PO SCH ×2 (08:09→16:25)
[2020-07-03] MEDS: lisinopriL 10 MG TABLET PO SCH (08:09)
[2020-07-03] MEDS: DOCUSATE SODIUM 100 MG CAPSULE PO SCH ×2 (08:11→21:11)
[2020-07-03] MEDS: POLYETHYLENE GLYCOL POWDER 17 GM PACK PO SCH ×2 (08:11→21:11)
[2020-07-03] MEDS ORDERED: predniSONE 20 MG TABLET PO SCH (09:00)
[2020-07-03] MEDS: MAGNESIUM SULF RIDER 2 GM in PREMIX 1 EACH IV PRN (10:24)
[2020-07-03] MEDS: SPIRONOLACTONE 25 MG TABLET PO SCH (10:29)
[2020-07-03] MEDS: traMADol 50 MG TABLET PO PRN (18:09)
[2020-07-03] MEDS: ASPIRIN EC 81 MG TABLET PO SCH (21:11)
[2020-07-03] MEDS: valACYclovir 500 MG TABLET PO SCH (21:11)
[2020-07-03] MEDS: MONTELUKAST 10 MG TABLET PO SCH (21:11)
[2020-07-04] MEDS: GABAPENTIN 400 MG CAPSULE PO SCH ×5 (00:44→23:19)
[2020-07-04] MEDS: PANTOPRAZOLE 40 MG TABLET PO SCH ×2 (07:23→16:56)
[2020-07-04] MEDS: INSULIN LISPRO 100 UNIT/ML SUBCUT SCH ×4 (07:23→21:20)
[2020-07-04] MEDS: POLYETHYLENE GLYCOL POWDER 17 GM PACK PO SCH ×2 (09:01→21:20)
[2020-07-04] MEDS: ASCORBIC ACID 500 MG TABLET PO SCH (09:02)
[2020-07-04] MEDS: FONDAPARINUX 2.5 MG/0.5 ML SYRINGE SUBCUT SCH (09:02)
[2020-07-04] MEDS: SPIRONOLACTONE 25 MG TABLET PO SCH (09:02)
[2020-07-04] MEDS: ATORVASTATIN 20 MG TABLET PO SCH (09:03)
[2020-07-04] MEDS: DOCUSATE SODIUM 100 MG CAPSULE PO SCH ×2 (09:03→21:21)
[2020-07-04] MEDS: ZINC GLUCONATE 50 MG TABLET PO SCH (09:03)
[2020-07-04] MEDS: LACTOBACILLUS ACIDOPHILUS/BULGARICUS CHEW TABLET PO SCH ×2 (09:03→21:22)
[2020-07-04] MEDS: lisinopriL 10 MG TABLET PO SCH (09:03)
[2020-07-04] MEDS: POLYCARBOPHIL 625 MG TABLET PO SCH (09:03)
[2020-07-04] MEDS: METOPROLOL SUCCINATE XL 25 MG TABLET PO SCH (09:03)
[2020-07-04] MEDS: FUROSEMIDE 40 MG TABLET PO SCH ×2 (09:03→16:57)
[2020-07-04] MEDS: FERROUS GLUCONATE 324 MG TABLET PO SCH (09:03)
[2020-07-04] MEDS: cefTRIAXone 1,000 MG in SYRINGE 1 EACH IV SCH (09:04)
[2020-07-04 09:55] LABS: Basophils % 0.2 % (0.0-0.8); Eosinophils # 0.3 10*3/uL (0.0-0.87); Eosinophils % 4.8 % (0.00-10.9); Hematocrit 27.2 VOL% (35.7-47.0); Hemoglobin 9.6 GM/DL (12.0-16.0); Immature Granulocytes Absolute 0.05 #; Lymphocytes # 2.6 10*3/uL (1.4-4.0); Mean Corpuscular HGB Conc 35.3 GM/DL (32-36); Mean Corpuscular Volume 100.4 FL (87-102); Mean Platelet Volume 9.4 FL (9.6-12.0); Monocytes % 6.8 % (1.7-12.7); Neutrophils % 37.2 % (38.7-73.9); Platelet Count 194 T/CUMM (130-400); Red Blood Count 2.71 MC/CUMM (3.8-5.5); Red Cell Distribution Width 13.4 % (9.3-17.3); White Blood Count 5.3 T/CUMM (4-12)
[2020-07-04 10:21] LABS: Calcium 7.9 MG/DL (8.5-10.1); Osmolality,Calculated 281.5 MOS/KG (273-304)
[2020-07-04 10:22] LABS: Eosinophils 4 % (0-10); Hypochromasia 1+; Lymphocytes 48 % (20-55); Microcytosis 1+; Platelet Estimate Adequate; Segmented Neutrophils 45 % (50-85); Total Cells Counted 100
[2020-07-04 10:23] LABS: Atypical Lymphocytes Few
[2020-07-04] MEDS: traMADol 50 MG TABLET PO PRN (11:54)
[2020-07-04] MEDS: glyBURIDE 2.5 MG TABLET PO SCH (17:39)
[2020-07-04] MEDS: valACYclovir 500 MG TABLET PO SCH (21:20)
[2020-07-04] MEDS: ASPIRIN EC 81 MG TABLET PO SCH (21:21)
[2020-07-04] MEDS: MONTELUKAST 10 MG TABLET PO SCH (21:21)
[2020-07-05] MEDS: GABAPENTIN 400 MG CAPSULE PO SCH ×4 (06:04→23:24)
[2020-07-05] MEDS: traMADol 50 MG TABLET PO PRN (06:05)
[2020-07-05 06:21] LABS: Basophils % 0.6 % (0.0-0.8); Eosinophils # 0.3 10*3/uL (0.0-0.87); Eosinophils % 6.4 % (0.00-10.9); Hematocrit 29.2 VOL% (35.7-47.0); Hemoglobin 10.1 GM/DL (12.0-16.0); Immature Granulocytes Absolute 0.05 #; Lymphocytes # 2.6 10*3/uL (1.4-4.0); Mean Corpuscular HGB Conc 34.6 GM/DL (32-36); Mean Corpuscular Volume 102.8 FL (87-102); Mean Platelet Volume 9.6 FL (9.6-12.0); Monocytes % 7.6 % (1.7-12.7); Neutrophils % 33.4 % (38.7-73.9); Platelet Count 217 T/CUMM (130-400); Red Blood Count 2.84 MC/CUMM (3.8-5.5); Red Cell Distribution Width 13.8 % (9.3-17.3); White Blood Count 5.2 T/CUMM (4-12)
[2020-07-05 06:45] LABS: Calcium 8.2 MG/DL (8.5-10.1); Osmolality,Calculated 275.5 MOS/KG (273-304)
[2020-07-05 06:52] LABS: Eosinophils 7 % (0-10); Hypochromasia 1+; Lymphocytes 53 % (20-55); Microcytosis 1+; Platelet Estimate Adequate; Segmented Neutrophils 32 % (50-85); Total Cells Counted 100
[2020-07-05 06:53] LABS: Atypical Lymphocytes Few
[2020-07-05] MEDS: lisinopriL 10 MG TABLET PO SCH (09:29)
[2020-07-05] MEDS: INSULIN LISPRO 100 UNIT/ML SUBCUT SCH ×4 (09:29→21:02)
[2020-07-05] MEDS: PANTOPRAZOLE 40 MG TABLET PO SCH ×2 (09:29→16:22)
[2020-07-05] MEDS: FERROUS GLUCONATE 324 MG TABLET PO SCH (09:30)
[2020-07-05] MEDS: ATORVASTATIN 20 MG TABLET PO SCH (09:30)
[2020-07-05] MEDS: ASCORBIC ACID 500 MG TABLET PO SCH (09:30)
[2020-07-05] MEDS: FUROSEMIDE 40 MG TABLET PO SCH ×2 (09:30→16:22)
[2020-07-05] MEDS: SPIRONOLACTONE 25 MG TABLET PO SCH (09:30)
[2020-07-05] MEDS: METOPROLOL SUCCINATE XL 25 MG TABLET PO SCH (09:30)
[2020-07-05] MEDS: glyBURIDE 2.5 MG TABLET PO SCH ×2 (09:30→16:22)
[2020-07-05] MEDS: POLYCARBOPHIL 625 MG TABLET PO SCH (09:30)
[2020-07-05] MEDS: ZINC GLUCONATE 50 MG TABLET PO SCH (09:31)
[2020-07-05] MEDS: DOCUSATE SODIUM 100 MG CAPSULE PO SCH ×2 (09:31→21:02)
[2020-07-05] MEDS: POLYETHYLENE GLYCOL POWDER 17 GM PACK PO SCH ×2 (09:40→21:02)
[2020-07-05] MEDS: LACTOBACILLUS ACIDOPHILUS/BULGARICUS CHEW TABLET PO SCH ×2 (09:40→21:02)
[2020-07-05] MEDS: FONDAPARINUX 2.5 MG/0.5 ML SYRINGE SUBCUT SCH (09:40)
[2020-07-05] MEDS: cefTRIAXone 1,000 MG in SYRINGE 1 EACH IV SCH (09:47)
[2020-07-05] MEDS: valACYclovir 500 MG TABLET PO SCH (21:02)
[2020-07-05] MEDS: ASPIRIN EC 81 MG TABLET PO SCH (21:02)
[2020-07-05] MEDS: MONTELUKAST 10 MG TABLET PO SCH (21:02)
[2020-07-05] MEDS: ACETAMINOPHEN 325 MG TABLET PO PRN (23:24)
[2020-07-06] MEDS ORDERED: traMADol 50 MG TABLET PO ONE (00:35)
[2020-07-06] MEDS ORDERED: SODIUM CHLORIDE 0.9% 1,000 ML IV SCH (04:00)
[2020-07-06] MEDS: GABAPENTIN 400 MG CAPSULE PO SCH ×3 (06:44→17:18)
[2020-07-06] MEDS: METOPROLOL SUCCINATE XL 25 MG TABLET PO SCH ×2 (06:45→09:38)
[2020-07-06] MEDS ORDERED: HEPARIN/NACL 0.9% 2 UNITS/ML 1,000 ML IV ONE (06:47)
[2020-07-06] MEDS ORDERED: LIDOCAINE 1% 20 ML VIAL ONE (06:47)
[2020-07-06] MEDS ORDERED: DIAZEPAM 5 MG TABLET PO ONE (07:00)
[2020-07-06] MEDS ORDERED: diphenhydrAMINE CAP 25 MG CAPSULE PO ONE (07:00)
[2020-07-06] MEDS ORDERED: HYDROmorphone 2 MG/1 ML VIAL ONE (07:27)
[2020-07-06] MEDS ORDERED: MIDAZOLAM 2 MG/2 ML VIAL ONE (07:28)
[2020-07-06] MEDS: DOCUSATE SODIUM 100 MG CAPSULE PO SCH ×2 (09:38→21:54)
[2020-07-06] MEDS: INSULIN LISPRO 100 UNIT/ML SUBCUT SCH ×4 (09:38→21:56)
[2020-07-06] MEDS: FERROUS GLUCONATE 324 MG TABLET PO SCH (09:39)
[2020-07-06] MEDS: ZINC GLUCONATE 50 MG TABLET PO SCH (09:39)
[2020-07-06] MEDS: FUROSEMIDE 40 MG TABLET PO SCH ×2 (09:39→16:02)
[2020-07-06] MEDS: ATORVASTATIN 20 MG TABLET PO SCH (09:39)
[2020-07-06] MEDS: glyBURIDE 2.5 MG TABLET PO SCH ×2 (09:39→17:18)
[2020-07-06] MEDS: POLYCARBOPHIL 625 MG TABLET PO SCH (09:39)
[2020-07-06] MEDS: lisinopriL 10 MG TABLET PO SCH (09:41)
[2020-07-06] MEDS: SPIRONOLACTONE 25 MG TABLET PO SCH (09:41)
[2020-07-06] MEDS: PANTOPRAZOLE 40 MG TABLET PO SCH ×2 (09:41→16:02)
[2020-07-06] MEDS: LACTOBACILLUS ACIDOPHILUS/BULGARICUS CHEW TABLET PO SCH ×2 (09:42→21:56)
[2020-07-06] MEDS: cefTRIAXone 1,000 MG in SYRINGE 1 EACH IV SCH (09:42)
[2020-07-06] MEDS: FONDAPARINUX 2.5 MG/0.5 ML SYRINGE SUBCUT SCH (09:42)
[2020-07-06] MEDS: POLYETHYLENE GLYCOL POWDER 17 GM PACK PO SCH ×2 (09:48→21:54)
[2020-07-06] MEDS: ASCORBIC ACID 500 MG TABLET PO SCH (10:40)
[2020-07-06] MEDS: traMADol 50 MG TABLET PO PRN ×2 (11:24→21:55)
[2020-07-06] MEDS: ASPIRIN EC 81 MG TABLET PO SCH (21:54)
[2020-07-06] MEDS: valACYclovir 500 MG TABLET PO SCH (21:54)
[2020-07-06] MEDS: MONTELUKAST 10 MG TABLET PO SCH (21:56)
[2020-07-07] MEDS: GABAPENTIN 400 MG CAPSULE PO SCH ×3 (00:13→12:39)
[2020-07-07 08:37] LABS: Calcium 8.6 MG/DL (8.5-10.1); Osmolality,Calculated 276.5 MOS/KG (273-304)
[2020-07-07] MEDS: INSULIN LISPRO 100 UNIT/ML SUBCUT SCH ×2 (09:54→12:39)
[2020-07-07] MEDS: PANTOPRAZOLE 40 MG TABLET PO SCH (09:55)
[2020-07-07] MEDS: SPIRONOLACTONE 25 MG TABLET PO SCH (09:55)
[2020-07-07] MEDS: DOCUSATE SODIUM 100 MG CAPSULE PO SCH (09:55)
[2020-07-07] MEDS: FONDAPARINUX 2.5 MG/0.5 ML SYRINGE SUBCUT SCH (09:55)
[2020-07-07] MEDS: glyBURIDE 2.5 MG TABLET PO SCH (09:55)
[2020-07-07] MEDS: FUROSEMIDE 40 MG TABLET PO SCH (09:55)
[2020-07-07] MEDS: ATORVASTATIN 20 MG TABLET PO SCH (09:56)
[2020-07-07] MEDS: LACTOBACILLUS ACIDOPHILUS/BULGARICUS CHEW TABLET PO SCH (09:56)
[2020-07-07] MEDS: POLYETHYLENE GLYCOL POWDER 17 GM PACK PO SCH (09:56)
[2020-07-07] MEDS: POLYCARBOPHIL 625 MG TABLET PO SCH (09:56)
[2020-07-07] MEDS: lisinopriL 10 MG TABLET PO SCH (09:56)
[2020-07-07] MEDS: FERROUS GLUCONATE 324 MG TABLET PO SCH (09:56)
[2020-07-07] MEDS: ZINC GLUCONATE 50 MG TABLET PO SCH (09:57)
[2020-07-07] MEDS: METOPROLOL SUCCINATE XL 25 MG TABLET PO SCH (09:57)
[2020-07-07] MEDS: ASCORBIC ACID 500 MG TABLET PO SCH (09:57)
[2020-07-07 12:01] VITALS: BP 136/56
== END 2020-07-07 14:31 | disposition home or self-care (01) | DRG 871 ==
LOC: N.ED 17:49 → N.EDINP 22:09 → SUATTDRO 22:09 → N.ICU 06-27 02:55 → N.5E 06-28 15:58 → N.TELEN 07-01 10:30
PROVIDERS: ADMIT Internal Medicine; ATTEND Family Medicine